=== PATIENT | female | born 1985 | race Hispanic/Latino ===

== ENCOUNTER 2017-09-05 10:30 | Emergency (ER) | payer OTHER ==
[~2017-09-05] VITALS: Ht 160 cm; Wt 70.3 kg
[~2017-09-05 10:30] MED LIST: AMOXICILLIN875 M1 PO; ANTIVERT 12.512.5 MG PO; ANTIVERT12.5 M1 PO; BACTRIM DS 8001 TAB PO; CIPRODEX OTIC7.5 ML OT; CYCLOBENZAPRINE10 M1 PO; FERRETTS I40 MG/15 M IV; FLEXERIL 10MG T10 MG PO; FLEXERIL10 MG PO; FLUDROCORTISON0.1 MG PO; HYDROCODONE/ACE1 TA1 PO; HYDROXYZINE HCL25 M2 PO; IBUPROFEN800 M1 PO; KEFLEX500 M1 PO; KETOROLAC TROME10 M1 PO; LIDODERM1 EACH TOP; LINZESS145 MC1 PO; LINZESS145 MCG PO; MAGIC MOUTHWASH PO; MOTRIN 600 MG600 MG PO; NAPROSYN 500 M500 MG PO; NAPROSYN500 M1 PO; NAPROXEN500 MG PO; PANTOPRAZOLE SO40 MG PO; PERCOCET 325 MG1 TA2 PO; PREDNISONE10 M2 PO; PREDNISONE10 MG PO; PREDNISONE20 M1 PO; SERTRALINE HYDR50 MG PO; TRAZODONE HCL50 M1 PO; TRAZODONE50 MG PO; TRIMETHOPRIM100 M1 PO; VALIUM5 M1 PO; ZOLOFT50 M1 PO
[2017-09-05 10:45] VITALS: BP 114/73
--- NOTE | 2017-09-05 13:10 | ED INFLUENZA/URI COMPLAINT ---
History of Present Illness General Chief Complaint: Upper Respiratory Sx/Fever Stated Complaint: URI Source: patient Exam Limitations: no limitations Vital Signs & Intake/Output Vital Signs & Intake/Output Vital Signs Date Time Temp Pulse Resp B/P B/P Pulse O2 O2 Flow FiO2 Mean Ox Delivery Rate 09/05 1416 99 Room Air 09/05 1045 97.0 81 15 114/73 100 Room Air Room Air Allergies Coded Allergies: nitrofurantoin (From MACROBID) (Intermediate, HIVES AND SWELLING ALL OVER ) ciprofloxacin (From CIPRO) (HIVES 09/05/17) Triage Note: PT TO ED FOR C/C OF PRODUCTIVE GREEN COUGH X 3 WEEKS AND NASAL CONGESTION. AFEBRILE IN TRIAGE. Triage Nurses Notes Reviewed? yes Onset: Gradual Duration: waxing and waning Timing: recent history Severity: moderate Severity Numbers: 5 : No Patient currently breastfeeds: No HPI: Patient is a 32-year-old female with past medical history of asthma who presents emergent with a 3 week history of nonproductive cough that is worse at night, son also has cough for the past 4 days Denies any fever chills sore throat ear pain shortness of breath wheezing nausea vomiting abdominal pain chest pain. Denies any fever chills denies any smoking history (Abe CHOPRA,Gume) Reconcile Medications Benzonatate (Tessalon Perle) 100 MG CAPSULE 1 CAP PO TID PRN COUGH Ciprofloxacin HCl/Dexameth (Ciprodex Otic Suspension) 0.3 %-0.1 % DROPS.SUSP 4 GTT OT BID OTITIS EXTERNA Codeine Phosphate/Guaifenesi (Cheratussin AC Syrup) 10 MG-100 MG/5 ML LIQUID 10 ML PO QPM PRN COUGH DO NOT TAKE THIS MEDICATION WHILE OPERATING MOTOR VEHICLES Ketorolac Tromethamine 10 MG TABLET 1 TAB PO TID PRN PAIN Linaclotide (Linzess) 145 MCG CAPSULE 1 CAP PO DAILY CONSTIPATION (Reported) Meclizine HCl (Antivert) 12.5 MG TABLET 1 TAB PO BID PRN VERTIGO (Reported) Methylprednisolone. (Medrol) 4 MG TAB.DS.PK 1 DP PO AD INFLAMMATION 6 on day 1 then reduce by one tablet daily until gone Sertraline HCl (Zoloft) 50 MG TABLET 1 TAB PO DAILY MENTAL HEALTH (Reported) Trazodone HCl 50 MG TABLET 1 TAB PO QPM PRN SLEEP (Reported) (Amilcar Kannan KATZ) Past History Travel History Traveled to [place] past 21 day No Medical History Any Pertinent Medical History? see below for history Neurological: vertigo, MIGRAINES EENT: NONE Cardiovascular: HYPOTENSION Respiratory: asthma Gastrointestinal: CHRONIC STOMACH PAIN Hepatic: NONE Renal: UTI'S Musculoskeletal: NONE Psychiatric: NONE Endocrine: NONE Blood Disorders: NONE Cancer(s): NONE ICU SPECIALIST/Reproductive: NONE Surgical History Surgical History: non-contributory Psychosocial History What is your primary language Maldivian Tobacco Use: Never used ETOH Use: denies use Illicit Drug Use: denies illicit drug use Family History Hx Contributory? No (Gume Bales) Review of Systems Review of Systems Constitutional: Reports: no symptoms. EENTM: Reports: no symptoms. Respiratory: Reports: see HPI, cough. Cardiovascular: Reports: no symptoms. GI: Reports: no symptoms. Genitourinary: Reports: no symptoms. Musculoskeletal: Reports: no symptoms. Skin: Reports: no symptoms. Neurological/Psychological: Reports: no symptoms. Hematologic/Endocrine: Reports: no symptoms. Immunologic/Allergic: Reports: no symptoms. All Other Systems: Reviewed and Negative (Gume Bales) Physical Exam Physical Exam General Appearance: no apparent distress, alert, comfortable Head: atraumatic Eyes: Bilateral: normal appearance, PERRL, EOMI. Ears, Nose, Throat: normal ENT inspection, moist mucous membrane, hearing grossly normal, Tympanic normal, pharynx normal Neck: normal inspection, supple Respiratory: normal breath sounds, chest non-tender, no respiratory distress Cardiovascular: regular rate/rhythm Peripheral Pulses: 2+ radial (R) Extremities: normal inspection Neurologic/Psych: no motor/sensory deficits, awake Skin: intact, normal color Core Measures Sepsis Present: No Sepsis Focused Exam Completed? No (Gume Bales) Progress Differential Diagnosis: influenza, meningitis, neutropenia, otitis, pneumonia, pharyngitis, sinusitis Plan of Care: Patient upon initial presentation was no apparent distress nontoxic-appearing unremarkable ENT exam clear lungs auscultation no wheezing no respiratory distress afebrile. Patient will be treated for concerns of viral syndrome and URI Initial ED EKG: none (Gume Bales) Departure Departure Disposition: HOME OR SELF CARE Condition: Stable Clinical Impression Primary Impression: Bronchitis Secondary Impressions: URI (upper respiratory infection) Referrals: Rupal Julien APRN (PCP/Family) Additional Instructions: As discussed continue your inhaler if needed for wheezing, begin the prescription for Tessalon Perles and Cheratussin for cough Begin the prescription of Medrol Dosepak for inflammation, per prescription is waiting at [facility]. If symptoms worsen return to emergency room, if no better in 3 days follow-up with her primary care doctor Departure Forms: Customer Survey General Discharge Information Prescriptions: Current Visit Scripts Methylprednisolone. (Medrol) 1 DP PO AD #1 DP 6 on day 1 then reduce by one tablet daily until gone Benzonatate (Tessalon Perle) 1 CAP PO TID PRN COUGH #15 CAP Codeine Phosphate/Guaifenesi (Cheratussin AC Syrup) 10 ML PO QPM PRN COUGH #100 ML DO NOT TAKE THIS MEDICATION WHILE OPERATING MOTOR VEHICLES (Abe CHOPRA,Gume) PA/ROOFING SALES REPRESENTATIVE Co-Sign Statement Statement: ED Attending supervision documentation- [] I saw and evaluated the patient. I have also reviewed all the pertinent lab results and diagnostic results. I agree with the findings and the plan of care as documented in the PA's/ROOFING SALES REPRESENTATIVE's documentation. [X] I have reviewed the ED Record and agree with the PA's/ROOFING SALES REPRESENTATIVE's documentation. [] Additions or exceptions (if any) to the PAs/ROOFING SALES REPRESENTATIVE's note and plan are summarized below: [] (Kannan Fitzgerald DO)
[2017-09-05] MEDS ORDERED: TESSALON PERLE100 M1 PO (13:28)
[2017-09-05] MEDS ORDERED: CHERATUSSIN AC118 M1 PO (13:28)
[2017-09-05] MEDS ORDERED: MEDROL4 M2 PO (13:28)
== END 2017-09-05 15:05 ==
LOC: ERH 10:30
DX: J40 Bronchitis, not specified as acute or chronic (principal); J06.9 Acute upper respiratory infection, unspecified